=== PATIENT | male | born 1975 | race Caucasian/White ===

== ENCOUNTER 2017-10-07 21:39 | Observation (INO) ==
--- NOTE | 2017-10-07 21:47 | Emergency Department Note ---
Disposition Clinical Impression: Chest pain Qualifiers: Chest pain type: unspecified Qualified Code(s): R07.9 - Chest pain, unspecified Disposition: Admitted As Inpatient Condition: Good Referrals: Jason Purvis MD [Primary Care Provider] - Forms: ED Satisfaction Letter Time of Disposition: 23:48 Chest Pain HPI - General Chief Complaint: ED Chest Pain Stated Complaint: chest pain Time Seen by Provider: 10/07/17 21:46 Source: patient Mode of arrival: ambulatory Limitations: no limitations Vital Signs Reviewed: Yes Nursing Notes Reviewed: Yes - History of Present Illness HPI Narrative: Patient is a 42-year-old male with past medical history of CAD, previous MA, 2 stents, history of seizures. He presents today from the senior care. EMS states that they were told that the patient was having chest pains for several hours today. Just prior to arrival, the patient was found "unresponsive" in his senior care cell. No further additional detail could be obtained about that event. However, when EMS arrived, the patient was alert and oriented 3, answering questions appropriately. The patient himself does admit that he has had chest pain for several hours, was given 2 nitroglycerin tablets and 324mg aspirin while in route and states that his pain went from a 10 out of 10 down to a 7 out of 10. He describes his chest pain as left-sided pressure that radiates to the left arm , no associated nausea, vomiting, sweating, fevers, shortness of breath. He is unsure if this feels like a previous MA that he has had. Denies any other numbness, tingling, weakness. He does not remember anything immediately before being found unresponsive, cannot remember if he had any lightheadedness, dizziness, palpitations. - Related Data Home Medications Medication Instructions Recorded Confirmed Aspirin 81 mg PO DAILY 08/19/17 08/19/17 Clopidogrel [Plavix] 75 mg PO DAILY 08/19/17 08/19/17 Insulin ASPART [NovoLOG] 0 unit SQ TIDWM 08/19/17 08/19/17 Lisinopril [Zestril] 10 mg PO DAILY 08/19/17 08/19/17 Metoprolol [Lopressor] 100 mg PO DAILY 08/19/17 08/19/17 metFORMIN [Glucophage] 1,000 mg PO BIDWM 08/19/17 08/19/17 Allergies Allergy/AdvReac Type Severity Reaction Status Date / Time No Known Allergies Allergy Verified 07/30/17 20:05 All systems ED: reviewed and negative except as stated. Constitutional: Denies: fever Cardiovascular: Reports: chest pain Respiratory: Denies: cough, dyspnea, wheezes Gastrointestinal: Denies: abdominal pain, nausea, vomiting Genitourinary: Denies: urgency, dysuria, frequency Neurological: Denies: headache, weakness, numbness Chest Pain PMH - Past Medical History Medical history: Reports: CHF, diabetes, hyperlipidemia, hypertension Psychiatric history: Reports: no psych history - Social History Smoking Status: Never smoker Alcohol use: Reports: none Drug use: Reports: none Physical Exam - General Limitations: no limitations General appearance: alert, in no apparent distress - Head Head exam: atraumatic, normocephalic, normal inspection - Eye Eye exam: Present: normal appearance, PERRL, EOMI - ENT ENT exam: normal exam, normal oropharynx, mucous membranes moist - Neck Neck exam: Present: normal inspection, full ROM, trachea midline - Chest Chest inspection: Present: normal inspection, symmetric chest wall rise - Respiratory Respiratory exam: Present: normal lung sounds bilaterally - Cardiovascular Cardiovascular exam: Present: regular rate, normal rhythm, normal heart sounds - Abdominal Exam Abdominal exam: Present: soft, Non-Tender. Absent: tenderness, distention, guarding, rebound, rigidity - Extremities Exam Extremities exam: Present: normal inspection, full ROM. Absent: tenderness, pedal edema - Neurological Exam Neurological exam: Present: alert, oriented X3 - Psychiatric Psychiatric exam: Present: normal affect, normal mood - Skin Skin exam: Present: warm, dry, intact, normal color Course Course Narrative: Patient was hypertensive on presentation. Otherwise, the rest of the vitals within normal limits. Physical exam shows heart regular rate and rhythm, lungs clear to auscultation, abdomen soft and nontender. Patient was given 2 nitroglycerin and 1 aspirin in route. He states his chest pain has gone from a 10 out of 10 to a 7 out of 10. Evidence around his unresponsive episode are unclear. He does have a seizure history, unsure if maybe he had a seizure or if it was related to his chest pain. We will obtain cardiac workup. He has significant risk factors, will admit for further care after workup was completed. EKG shows normal sinus rhythm with no acute ST changes, troponin negative, chest x-ray negative for any acute cardiopulmonary process. Patient had complete resolution of chest pain with additional nitroglycerin. Due to history of MA, stents, multiple risk factors, will admit to hospitalist for chest pain rule out. Vital Signs Temperature 98.8 F 10/07/17 21:42 Pulse Rate 86 10/07/17 21:42 Respiratory Rate 12 10/07/17 21:42 Blood Pressure 169/103 10/07/17 21:42 O2 Sat by Pulse Oximetry 96 10/07/17 21:42 Temperature 98.8 F 10/07/17 21:42 Pulse Rate 69 10/07/17 23:40 Respiratory Rate 14 10/07/17 23:40 Blood Pressure 150/100 10/07/17 23:40 O2 Sat by Pulse Oximetry 96 10/07/17 23:40 Oxygen Delivery Oxygen Delivery Room Air Chest Pain - MDM Narrative Medical decision making narrative: Patient was hypertensive on presentation. Otherwise, the rest of the vitals within normal limits. Physical exam shows heart regular rate and rhythm, lungs clear to auscultation, abdomen soft and nontender. Patient was given 2 nitroglycerin and 1 aspirin in route. He states his chest pain has gone from a 10 out of 10 to a 7 out of 10. Evidence around his unresponsive episode are unclear. He does have a seizure history, unsure if maybe he had a seizure or if it was related to his chest pain. We will obtain cardiac workup. He has significant risk factors, will admit for further care after workup was completed. EKG shows normal sinus rhythm with no acute ST changes, troponin negative, chest x-ray negative for any acute cardiopulmonary process. Patient had complete resolution of chest pain with additional nitroglycerin. Due to history of MA, stents, multiple risk factors, will admit to hospitalist for chest pain rule out. - Medical Records Medical records reviewed: Yes I reviewed the patient's medical records. - Lab Data Lab results reviewed: Yes I reviewed the patient's lab results. Result diagrams: 10/07/17 21:57 10/07/17 21:57 Lab Results 10/07/17 10/07/17 10/07/17 Range/Units 21:57 21:57 21:57 WBC 8.3 (4.3-11.1) K/mcL RBC 4.99 (4.19-5.50) M/mcL Hgb 13.5 (12.9-16.9) g/dL Hct 40.4 (37.5-50.1) % MCV 81.0 L (83.0-100.0) fL MCH 27.1 L (28.0-33.3) pg MCHC 33.4 (31.6-35.5) g/dL RDW 14.3 (11.5-14.5) % Plt Count 173 (140-400) K/mcL MPV 10.8 (9.4-12.4) fL Immature Gran % 0.5 (0-4) % Seg Neutrophils % 59.4 % Lymphocytes % 30.4 % Monocytes % 7.6 % Eosinophils % 1.7 % Basophils % 0.4 % Neutrophils # 4.9 (1.6-8.9) K/mcL Lymphocytes # 2.5 (0.6-4.6) K/mcL Monocytes # 0.6 (0.0-1.3) K/mcL Eosinophils # 0.1 (0.0-0.6) K/mcL Basophils # 0.0 (0.0-0.2) K/mcL PT 10.7 (9.4-12.1) Seconds INR 1.0 APTT 30.7 (26.0-36.0) Seconds Sodium 140 (136-145) mEq/L Potassium 4.3 (3.5-5.1) mEq/L Chloride 109 H (98-107) mEq/L Carbon Dioxide 26 (23-29) mEq/L BUN 14 (6-20) mg/dL Creatinine 0.84 (0.70-1.30) mg/dL Est GFR ( Amer) > 60 (> 60) Est GFR (Non-Af Amer) > 60 (> 60) BUN/Creatinine Ratio 17 (6-26) Glucose 156 H (70-105) mg/dL Calculated Osmolality 294 (280-300) Calcium 9.8 (8.6-10.3) mg/dL Troponin I < 0.03 (< 0.04) ng/mL - Radiology Data Radiology results reviewed: Yes I reviewed the patient's radiology results. Chest X-Ray 10/07/17 21:50 IMPRESSION: No acute cardiopulmonary abnormality. D/ / Ranjan Patrick / Ranjan Patrick Interpreting Provider: Ranjan Patrick - EKG Data EKG attestation: Yes I reviewed and interpreted this EKG. EKG results narrative: 10/07/2017 at 21:45. Rate 82. MT 176. QRS 90. QTc 426. Normal axis. No acute ST elevation or depression. Heart Score - Score History: Moderately Suspicious EKG: Non Specific repolarisation Disturbance Age: Less than 45 Risk Factors: Equal/Greater than 3 risk factor or history of atherosclerotic disease Troponin: Less than normal limit HEART Score Total: 4 S.B.A.R. - S.B.A.RSugar Situation: Demographics, MOA Background: Presenting Complaint, Relevant PMH, Meds, & Allergies Assessment: Vital Signs, Course and respsone to treatment, Exam Concerns, Patient/Family Expectation, Pertinant Lab Results, Outstanding Labs Recommendation: Barrier(s) to disposition, Recommendation based on pending studies, treatments, or consults S.B.A.RSugar Report Given to: Dr. Yesenia Rainey Repor Time: 23:48 Attestation Statement - Attestation Attestation: I, Jonathan Lobato MD, personally evaluated this patient and discussed their management with the resident physician. I reviewed the resident's note and agree with the documented findings, medical decision making, and plan of care. 42-year-old male presents to the emergency department from the local senior care in police custody for an episode of unresponsiveness and also complaint of chest pain. Patient has a history of coronary artery disease and has coronary artery stents. He complains of chest pain radiating to the left arm. Chest pain did resolve with nitroglycerin. Patient had an episode of his "unresponsiveness" while here in the emergency department. His vital signs remained totally normal and unchanged during the episode. He would not respond to painful stimuli however when his arm was held above his face and dropped purposefully lower the arm to his side of the arm falling or hitting him in the face. He also had fluttering of his eyelids with touching the eyelashes. He responded to an ammonia capsule became awake and alert. He was noted to be holding his breath when the ammonia capsule was initially placed under his nose. On examination patient is a well-developed obese male in no acute distress. He is alert and oriented 3. There is no cyanosis or diaphoresis. Breath sounds are clear and equal bilaterally. Heart regular rate and rhythm. Abdomen soft and nontender with normal bowel sounds. No gross focal neurological deficits. Labs reviewed and unremarkable. Troponin normal. Chest x-ray negative. A normal sinus rhythm with ventricular rate of 82. No acute ST segment elevation or depression. No ectopy or arrhythmia. Normal EKG. The hospitalist, Dr. Patterson, was consulted and accepted admission of the patient.
[2017-10-07] MEDS: Nitroglycerin 0.4 MG TAB.SUBL SL PRN (22:03)
[2017-10-07 22:06] LABS: Basophils % 0.4 %; Eosinophils # 0.1 K/mcL (0.0-0.6); Eosinophils % 1.7 %; Hematocrit 40.4 % (37.5-50.1); Hemoglobin 13.5 g/dL (12.9-16.9); Immature Granulocytes % 0.5 % (0-4); Lymphocytes # 2.5 K/mcL (0.6-4.6); Lymphocytes % 30.4 %; Mean Corpuscular HGB Conc 33.4 g/dL (31.6-35.5); Mean Corpuscular Hemoglobin 27.1 pg (28.0-33.3); Mean Platelet Volume 10.8 fL (9.4-12.4); Monocytes # 0.6 K/mcL (0.0-1.3); Monocytes % 7.6 %; Neutrophils # 4.9 K/mcL (1.6-8.9); Platelet Count 173 K/mcL (140-400); Red Blood Count 4.99 M/mcL (4.19-5.50); Red Cell Distribution Width 14.3 % (11.5-14.5); Segmented Neutrophils % 59.4 %
[2017-10-07] MEDS ORDERED: *HR* LORazepam 2 MG/ML VIAL ONE (22:08)
[2017-10-07 22:11] LABS: Prothrombin Time 10.7 Seconds (9.4-12.1)
[2017-10-07 22:14] LABS: Activated Partial Thrombo Time 30.7 Seconds (26.0-36.0)
[2017-10-07 22:31] LABS: BUN/Creatinine Ratio 17 (6-26); Blood Urea Nitrogen 14 mg/dL (6-20); Calcium 9.8 mg/dL (8.6-10.3); Carbon Dioxide 26 mEq/L (23-29); Chloride 109 mEq/L (98-107); Glucose 156 mg/dL (70-105); Osmolality,Calculated 294 (280-300); Potassium 4.3 mEq/L (3.5-5.1); Sodium 140 mEq/L (136-145); Troponin I < 0.03 ng/mL (< 0.04); eGFR For African Americans > 60 (> 60); eGFR For Non-African Americans > 60 (> 60)
--- NOTE | 2017-10-08 00:11 | Internal Med History&Physical ---
<ChivoHarris Kiel - Last Filed: 10/08/17 05:06> Date of Encounter: 10/08/17 Time of Encounter: 23:58 Assessment and Plan (1) Syncope Current visit: No Status: Acute Questionable history of possible unresponsive episodes or syncope Will initiate syncope work-up Continuous cardiac monitoring Head CT Carotid doppler ultrasound and Echo in AM Qualifiers: Syncope type: unspecified Qualified Code(s): R55 - Syncope and collapse (2) Chest pain Current visit: No Status: Acute Chest pain with Hx of CAD s/p 2 stents, HLD, HTN, and DM ECG shows NSR with no ST elevation or depression Initial troponin negative - will trend every 6 hours to evaluate for ACS Chest x-ray shows no acute process Will plan for echo in AM, repeat ECG Qualifiers: Chest pain type: unspecified Qualified Code(s): R07.9 - Chest pain, unspecified (3) CAD (coronary artery disease) Current visit: No Status: Acute Qualifiers: Coronary Disease-Associated Artery/Lesion type: [place] artery [place] vs. transplanted heart: [place] heart Associated angina: with unspecified angina Qualified Code(s): I25.119 - Atherosclerotic heart disease of [place] coronary artery with unspecified angina pectoris (4) Hypertension Current visit: No Status: Acute Continue home medications Qualifiers: Hypertension type: essential hypertension Qualified Code(s): I10 - Essential (primary) hypertension (5) Type 2 diabetes mellitus Current visit: No Status: Acute On metformin and 45U insulin qhs Glucose 156 now Will hold metformin and place on low-dose SSI for now Qualifiers: Diabetes mellitus pigskin trimmer insulin use: unspecified skilled nursing insulin use status Diabetes mellitus complication status: with neurologic complications Diabetes mellitus complication detail: with polyneuropathy Qualified Code(s): E11.42 - Type 2 diabetes mellitus with diabetic polyneuropathy (6) DVT prophylaxis Current visit: No Status: Acute Subq heparin - pending results of head CT Internal Medicine - H&P: HPI Chief complaint: Chest Pain Admitted From: Emergency Dept History of present illness: Mr. Jang is a 42 year old male with PMH of CAD s/p 2 stents, DM, HTN, and history of seizures, presents emergency department from senior care with chief complaint of chest pain. He is complaining of intermittent, sharp/stabbing left- sided chest pain that is radiating to his left arm that began this morning. He states that when this happens his left arm will become numb and tingle. He was given 2 nitroglycerin and aspirin in route to the hospital and this decreased his pain. Reports only mild pain now. He reports some mild LE edema, but denies other associated symptoms. Denies worsening with exertion, light-headedness, dizziness, diaphoresis, palpitations, dyspnea, orthopnea, nausea, abdominal pain , or back pain. He is unsure if this is similar to his prior HI. Apparently he was found "unresponsive" in his senior care cell this evening. He remembers little from the event reports he just laid down to rest, but then awoke with unfamiliar people around him. Reportedly EMS states that he was alert and oriented 3 when they arrived. He denies biting his tongue or loss of bowel or bladder control. He states that there were other inmates in the room, but their stories of the event are unavailable. The ED note also mentions that he became "unresponsive" in the ED, but his vitals remained normal, he had purposeful arm movement, and he woke with ammonia. Past Med Surg Social Fam HX - Past Medical History Medical history: CHF, diabetes, hyperlipidemia, hypertension Psychiatric history: no psych history - Past Surgical History Surgical History: herniorrhaphy - Social History Smoking Status: Never smoker Smokeless Tobacco Status: No Alcohol use: none Drug use: none - Family History Father Hx Family Endocrine Disorder: Yes Internal Medicine - H&P: Meds Aspirin 81 mg PO DAILY 08/19/17 [History] Clopidogrel [Plavix] 75 mg PO DAILY 08/19/17 [History] Insulin ASPART [NovoLOG] 0 unit SQ TIDWM 08/19/17 [History] Lisinopril [Zestril] 10 mg PO DAILY 08/19/17 [History] Metoprolol [Lopressor] 100 mg PO DAILY 08/19/17 [History] metFORMIN [Glucophage] 1,000 mg PO BIDWM 08/19/17 [History] Ezetimibe 10/08/17 [History] Ezetimibe [Zetia] 10 mg PO DAILY 10/08/17 [History] Gemfibrozil [Lopid] 600 mg PO DAILY 10/08/17 [History] 3 Allergy/AdvReac Type Severity Reaction Status Date / Time No Known Allergies Allergy Verified 07/30/17 20:05 All Systems PM: A 10-system review of systems was performed and is negative for pertinent findings except as documented above in the HPI. - Constitutional Vitals: Temp Pulse Resp BP Pulse Ox 98.8 F 69 14 150/100 96 10/07/17 21:42 10/07/17 23:40 10/07/17 23:40 10/07/17 23:40 10/07/17 23:40 General appearance: Present: cooperative, A&O X 3, no acute distress - Head Head exam: Present: atraumatic, normal inspection, normocephalic - Eye Eye exam: Present: EOMI, PERRL, conjuntiva pink, sclera anicteric - ENT ENT exam: Present: mucous membranes moist - Respiratory Respiratory exam: Present: CTAB. Absent: rales, respiratory distress, rhonchi, wheezes - Cardiovascular Cardiovascular exam: Present: RRR, +S1, +S2 - GI/Abdominal GI/Abdominal exam: Present: normal bowel sounds. Absent: tenderness - Extremities Exam Extremities exam: Present: normal capillary refill, pedal edema (mild, left worse than right), radial pulses palpable and symmetrical. Absent: tenderness - Neurological Exam Neurological exam: Present: alert, CN II-XII intact, oriented X3, no focal deficits, strengths equal and symetr throughout. Absent: motor sensory deficit - Skin Skin exam: Present: dry, intact, warm Internal Med - H&P Results - Labs CBC & Chem 7: 10/08/17 02:36 10/08/17 02:36 Labs: Short CBC 10/07/17 Range/Units 21:57 WBC 8.3 (4.3-11.1) K/mcL Hgb 13.5 (12.9-16.9) g/dL Hct 40.4 (37.5-50.1) % Plt Count 173 (140-400) K/mcL Neutrophils # 4.9 (1.6-8.9) K/mcL BMP 10/07/17 21:57 Sodium 140 Potassium 4.3 Chloride 109 H Carbon Dioxide 26 BUN 14 Creatinine 0.84 Glucose 156 H Calcium 9.8 Cardiac Enzymes 10/07/17 Range/Units 21:57 Troponin I < 0.03 (< 0.04) ng/mL - EKG Data EKG shows normal: sinus rhythm, axis, intervals, QRS complexes, ST-T waves Rate: normal - EKG Data Prior EKG available for review: yes When compared to previous EKG: there is no significant change Interpretation IM: normal EKG - Impressions ITS Impressions Chest X-Ray 10/07/17 21:50 IMPRESSION: No acute cardiopulmonary abnormality. D/ / Ranjan Patrick / Ranjan Patrick Interpreting Provider: Ranjan Patrick <Joel Lara - Last Filed: 10/08/17 05:23> Date of Encounter: 10/08/17 Internal Medicine - H&P: HPI History of present illness: Mr. Jang is a 42 year old male All Systems PM: A 10-system review of systems was performed and is negative for pertinent findings except as documented above in the HPI. - Constitutional Vitals: Temp Pulse Resp BP Pulse Ox 97.7 F 75 14 143/83 95 10/08/17 03:37 10/08/17 03:37 10/08/17 03:37 10/08/17 03:37 10/08/17 03:37 Internal Med - H&P Results - Labs CBC & Chem 7: 10/08/17 02:36 10/08/17 02:36 Labs: Short CBC 10/08/17 Range/Units 02:36 WBC 9.3 (4.3-11.1) K/mcL Hgb 13.3 (12.9-16.9) g/dL Hct 39.7 (37.5-50.1) % Plt Count 170 (140-400) K/mcL Neutrophils # 5.3 (1.6-8.9) K/mcL BMP 10/08/17 02:36 Sodium 139 Potassium 3.7 Chloride 107 Carbon Dioxide 27 BUN 12 Creatinine 0.78 Glucose 125 H Calcium 9.6 Cardiac Enzymes 10/08/17 Range/Units 02:36 Troponin I < 0.03 (< 0.04) ng/mL Liver Function 10/08/17 Range/Units 02:36 Total Bilirubin 0.5 (0.3-1.0) mg/dL AST 15 (13-39) Units/L ALT 17 (7-52) Units/L Alkaline Phosphatase 90 (34-104) Units/L Albumin 3.8 (3.5-5.7) g/dL - Attending Attestation I have seen and examined this patient independently. I have discussed with resident physician Dr. Waldron regarding the management plan. Agree with the documentation.
[2017-10-08] MEDS ORDERED: Naloxone 0.4 MG/ML INJ IVP PRN (00:34)
[2017-10-08] MEDS ORDERED: Ondansetron 4 MG/2 ML VIAL IVP PRN (00:34)
[2017-10-08] MEDS ORDERED: Dextrose Gel 15 GM/37.5 ML TUBE PO PRN ×2 (00:46)
[2017-10-08] MEDS ORDERED: D5% in Water 1,000 ML IVC PRN (00:46)
[2017-10-08] MEDS ORDERED: *HR* Dextrose 50 % in Water (Syg) 50 ML SYRINGE IVP PRN (00:46)
[2017-10-08] MEDS ORDERED: Insulin LISPRO 300 UNITS/3 ML VIAL SQ SCH (01:00)
[2017-10-08 02:51] LABS: Basophils % 0.4 %; Eosinophils # 0.2 K/mcL (0.0-0.6); Eosinophils % 1.8 %; Hematocrit 39.7 % (37.5-50.1); Hemoglobin 13.3 g/dL (12.9-16.9); Immature Granulocytes % 0.3 % (0-4); Immature Platelets 5.3 % (1.1-6.1); Lymphocytes # 3.2 K/mcL (0.6-4.6); Lymphocytes % 34.1 %; Mean Corpuscular HGB Conc 33.5 g/dL (31.6-35.5); Mean Corpuscular Hemoglobin 26.8 pg (28.0-33.3); Mean Corpuscular Volume 79.9 fL (83.0-100.0); Mean Platelet Volume 10.9 fL (9.4-12.4); Monocytes # 0.6 K/mcL (0.0-1.3); Monocytes % 6.6 %; Neutrophils # 5.3 K/mcL (1.6-8.9); Platelet Count 170 K/mcL (140-400); Red Blood Count 4.97 M/mcL (4.19-5.50); Segmented Neutrophils % 56.8 %
[2017-10-08 03:05] LABS: Alanine Aminotransferase 17 Units/L (7-52); Albumin 3.8 g/dL (3.5-5.7); Albumin/Globulin Ratio 1.3 (1.1-2.2); Alkaline Phosphatase 90 Units/L (34-104); Aspartate Amino Transferase 15 Units/L (13-39); BUN/Creatinine Ratio 15 (6-26); Bilirubin,Total 0.5 mg/dL (0.3-1.0); Blood Urea Nitrogen 12 mg/dL (6-20); Calcium 9.6 mg/dL (8.6-10.3); Carbon Dioxide 27 mEq/L (23-29); Chloride 107 mEq/L (98-107); Globulin 2.9 g/dL (2.4-3.5); Glucose 125 mg/dL (70-105); Osmolality,Calculated 289 (280-300); Potassium 3.7 mEq/L (3.5-5.1); Sodium 139 mEq/L (136-145); Total Protein 6.7 g/dL (6.4-8.9); eGFR For African Americans > 60 (> 60); eGFR For Non-African Americans > 60 (> 60)
[2017-10-08] MEDS: *HR* Heparin 5,000 UNIT/ML VIAL SQ SCH ×2 (06:04→14:15)
[2017-10-08] MEDS ORDERED: Aspirin 81 MG TAB.CHEW PO SCH (09:00)
[2017-10-08] MEDS ORDERED: Metoprolol 100 MG TABLET PO SCH (09:00)
[2017-10-08] MEDS ORDERED: Metoprolol XL (24 HR) Succ 50 MG TAB.ER.24H PO SCH (09:00)
[2017-10-08] MEDS: Insulin LISPRO 300 UNITS/3 ML VIAL SQ SCH ×3 (09:11→18:32)
[2017-10-08] MEDS: Nitroglycerin 0.4 MG TAB.SUBL SL PRN (09:25)
[2017-10-08] MEDS ORDERED: *HR* LORazepam 0.5 MG TABLET PO PRN (14:09)
--- NOTE | 2017-10-08 16:05 | Internal Med Progress Note ---
Date of Encounter: 10/08/17 Time of Encounter: 12:20 - Assessment and plan (1) Chest pain Status: Acute Assessment and plan: So far negative trop No acute EKG changes cont ASA, Plavix ad Metoprolol Since he is high risk for ACCS will do stress test in AM Qualifiers: Qualified Code(s): R07.9 - Chest pain, unspecified (2) Syncope Status: Acute Assessment and plan: questionable ?? Conversion disorder however he is high risk pt cont him on tele will check 2 D Echo, Carotid doppler Qualifiers: Syncope type: unspecified Qualified Code(s): R55 - Syncope and collapse (3) CAD (coronary artery disease) Status: Acute Assessment and plan: Resumed all home meds Qualifiers: Coronary Disease-Associated Artery/Lesion type: [place] artery [place] vs. transplanted heart: [place] heart Associated angina: with unspecified angina Qualified Code(s): I25.119 - Atherosclerotic heart disease of [place] coronary artery with unspecified angina pectoris (4) Hypertension Status: Acute Assessment and plan: slightly elevated cont home meds also will give hydralazine IV PRN Qualifiers: Hypertension type: essential hypertension Qualified Code(s): I10 - Essential (primary) hypertension (5) Type 2 diabetes mellitus Status: Acute Assessment and plan: on ISS Qualifiers: Diabetes mellitus buttermaker continuous churn insulin use: unspecified custodial insulin use status Diabetes mellitus complication status: with neurologic complications Diabetes mellitus complication detail: with polyneuropathy Qualified Code(s): E11.42 - Type 2 diabetes mellitus with diabetic polyneuropathy - Subjective Interval history: Mr. Jang is a 42 year old male with PMH of CAD s/p 2 stents, DM, HTN, and history of seizures, presents emergency department from [facility] with chief complaint of chest pain. He is complaining of intermittent, sharp/stabbing left- sided chest pain that is radiating to his left arm that began this morning. He states that when this happens his left arm will become numb and tingle. He was given 2 nitroglycerin and aspirin in route to the hospital and this decreased his pain. Pt denied any active CP now. He is alert, awake and O x 3. He had seizure disorder when he was young, but no seizure activity in the recent past. Also denied any seizure activity at [facility]. - Constitutional Vitals: Temp Pulse Resp BP Pulse Ox 97.7 F 79 15 138/85 97 10/08/17 10:48 10/08/17 14:18 10/08/17 10:48 10/08/17 14:18 10/08/17 10:48 General appearance: Present: cooperative, A&O X 3, no acute distress - Head Head exam: Present: atraumatic, normal inspection - Neck Neck exam general surgery: Present: supple - Respiratory Respiratory exam: Present: decreased breath sounds. Absent: rales, respiratory distress, rhonchi, wheezes - Cardiovascular Cardiovascular exam: Present: RRR, +S1, +S2. Absent: tachycardia - GI/Abdominal GI/Abdominal exam: Present: normal bowel sounds, soft. Absent: rebound, rigid, tenderness - Extremities Exam Extremities exam: Absent: calf tenderness, pedal edema, tenderness - Back Exam Back exam: Absent: CVA tenderness (L), CVA tenderness (R) - Neurological Exam Neurological exam: Present: alert, oriented X3 - Psychiatric Psychiatric exam: Present: normal affect, normal mood Internal Medicine: Result - Labs CBC & Chem 7: 10/08/17 02:36 10/08/17 02:36 Labs: Cardiac Enzymes 10/08/17 Range/Units 08:30 Troponin I < 0.03 (< 0.04) ng/mL - ABG Interpretation ABG results: PT/INR, D-dimer PT 11.0 Seconds (9.4-12.1) 10/08/17 02:36 Consult Discharge Plan - Plan Referrals: Jason Purvis MD [Primary Care Provider] -
[2017-10-08] MEDS ORDERED: Perflutren Lipid Microsphere 2 ML VIAL ONE (16:35)
[2017-10-08] MEDS: Perflutren Lipid Microsphere 1.3 ML in 0.9 % Sodium Chloride 8.7 ML IVP ONE ×2 (18:05→22:47)
[2017-10-08 20:24] VITALS: BP 182/114
--- NOTE | 2017-10-09 01:31 | Event Note ---
Date of Encounter: 10/08/17 Time of Encounter: 22:00 Patient's nurse called me to alert me that patient wanted to leave AMA. Pt. was admitted from [facility] w/chest pain. Echocardiogram and bilateral carotid Dopplers were done w/stress test to be performed on Wednesday. Patient stated that he wanted to go back home to see his director of integrated marketing and have testing done there. I explained to pt. that this was against my medical advice given the fact that he presented w/chest pain and there was risk for cardiac event which could lead to . Echo and carotid results were not available at the time of pt. wanting to leave. Pts. family stated that they wanted him to stay due to the risks, but patient persisted that he wanted to leave. Pt. inquired how he could find out the results of his tests. I informed him that his director of integrated marketing could requisition them from [facility]. I explained one more time about the risks involved w /leaving AMA d/t the risk of cardiac event and possible , however patient stated that he understood the risks associated w/leaving early and he was leaving AMA. Papers filled out and signed by pt. and myself.
--- NOTE | 2017-10-09 08:21 | Discharge Summary ---
Date of Encounter: 10/09/17 Time of Encounter: 08:16 - Discharge Diagnosis (1) Chest pain Priority: Primary Status: Acute Qualifiers: Qualified Code(s): R07.9 - Chest pain, unspecified (2) Syncope Priority: Primary Status: Acute Qualifiers: Syncope type: unspecified Qualified Code(s): R55 - Syncope and collapse (3) CAD (coronary artery disease) Priority: Secondary Status: Acute Qualifiers: Coronary Disease-Associated Artery/Lesion type: [place] artery [place] vs. transplanted heart: [place] heart Associated angina: with unspecified angina Qualified Code(s): I25.119 - Atherosclerotic heart disease of [place] coronary artery with unspecified angina pectoris (4) Hypertension Priority: Secondary Status: Acute Qualifiers: Hypertension type: essential hypertension Qualified Code(s): I10 - Essential (primary) hypertension (5) Type 2 diabetes mellitus Priority: Secondary Status: Acute Qualifiers: Diabetes mellitus director long term care insulin use: unspecified director long term care insulin use status Diabetes mellitus complication status: with neurologic complications Diabetes mellitus complication detail: with polyneuropathy Qualified Code(s): E11.42 - Type 2 diabetes mellitus with diabetic polyneuropathy Hospital course: Mr. Jang is a 42 year old male with known PMH of HTN, DM2, HLD and CAD pt was admitted here y/d for Chest pain and questionable syncope episode. Pt was placed on monitor and checked his troponins which were negative. He is scheduled for stress test today, however he left AMA last night. I was not in the hospital, my LOGISTICS VICE PRESIDENT [place], did talk to him to stay in the hospital however he still left AMA. - Time Spent with Patient Total time spent providing and/or coordinating discharge services: - Discharge Medications Home Medications: Clopidogrel [Plavix] 75 mg PO DAILY 08/19/17 [History] Insulin ASPART [NovoLOG] 0 unit SQ TIDWM 08/19/17 [History] Lisinopril [Zestril] 10 mg PO DAILY 08/19/17 [History] metFORMIN [Glucophage] 1,000 mg PO BIDWM 08/19/17 [History] Aspirin Enteric Coated [Aspirin EC] 325 mg PO DAILY 10/08/17 [History] Ezetimibe [Zetia] 10 mg PO DAILY 10/08/17 [History] Gemfibrozil [Lopid] 600 mg PO DAILY 10/08/17 [History] Insulin Glargine,Hum.rec.anlog [Kati Loo] 45 units SQ HS 10/08/17 [ History] Metoprolol Succinate [Toprol Xl] 100 mg PO DAILY 10/08/17 [History] Allergies/Adverse Reactions: 3 Allergy/AdvReac Type Severity Reaction Status Date / Time No Known Allergies Allergy Verified 10/08/17 09:45 Date of admission: 10/08/17 05:24 Primary care physician: Jason Purvis MD - Constitutional Vitals: Temp Pulse Resp BP Pulse Ox 98 F 87 18 182/114 99 10/08/17 20:23 10/08/17 20:23 10/08/17 20:23 10/08/17 20:23 10/08/17 20:23 General appearance: Present: cooperative, A&O X 3, no acute distress - Patient Status Disposition: Left Against Medical Advice Condition: Good - Discharge Instructions Follow Up With: Jason Purvis MD [Primary Care Provider] -
[2017-10-09] MEDS ORDERED: Lisinopril 20 MG TABLET PO SCH (09:00)
--- NOTE | 2017-10-12 21:55 | Electrocardiograph Report ---
[place] [id number] Test Date: 2017-10-07 Pat Name: Armand Jang Department: 104 Room: 2A45 Gender: M [employer] Attendant: GASTON : 1975 Requested By: Luis Manuel Pitts Order Number: [id number] Reading MD: Ameya Trotter DO Measurements Intervals [place] Rate: 82 P: 29 GA: 176 QRS: 4 QRSD: 90 T: 20 QT: 387 QTc: 426 Interpretive Statements SINUS RHYTHM Electronically Signed On 10-12-2017 21:53:33 EDT by Ameya Trotter DO
== END 2017-10-08 22:53 | disposition left against medical advice (07) | DRG 198 ==
LOC: 2ANU 21:39 → EMEROO 21:39 → 2ANU 10-08 01:06
PROVIDERS: ADMIT Hospitalist; ATTEND Hospitalist